=== PATIENT | male | born 1945 | race Caucasian/White ===

== ENCOUNTER 2025-07-15 00:48 | Inpatient (IN) | payer MEDICARE ==
[~2025-07-15] VITALS: Ht 175.3 cm; Wt 72.6 kg
[2025-07-15 01:14] LABS: PLATELET COUNT (AUTO) 323 K/uL (150-450); RED BLOOD CELL COUNT(AUTO) 4.41 MIL/uL (4.5-6.0); RED CELL DISTRIBUTION WIDTH 17.6 % (11.5-15.0); WHITE BLOOD COUNT (AUTO) 10.4 K/uL (4.3-11.0)
[2025-07-15] MEDS ORDERED: ZIPRASIDONE MESYLATE 20 MG/VIAL VIAL IM ONE (01:15)
[2025-07-15] MEDS: ZIPRASIDONE MESYLATE 20 MG/VIAL VIAL IM ONE (01:19)
[2025-07-15 01:33] LABS: ASPARTATE AMINOTRANSFERASE 21 U/L (15-37); CALCIUM, SERUM 9.1 mg/dL (8.5-10.1); CREATININE 2.1 mg/dL (0.6-1.3); SODIUM SERUM 136 mmol/L (136-145); TOTAL PROTEIN, SERUM 6.1 g/dL (6.4-8.2); UREA NITROGEN, BLOOD 59 mg/dL (7-18)
[2025-07-15 01:35] LABS: LACTIC ACID 3.5 mmol/L (0.4-2.0)
[2025-07-15] MEDS: POTASSIUM CL. PREMIX PERIPHER. 50 ML IV SCH ×2 (02:06→19:51)
[2025-07-15] MEDS: POTASSIUM CHLORIDE 20 MEQ TAB.PRT.SR PO ONE (02:16)
[2025-07-15 02:17] LABS: ABG BASE EXCESS 3.9 mmol/L (-2.0-3.0); ABG OXYGEN SATURATION 98.3 % (94.0-98.0); ABG PCO2 38.8 mmHg (35.0-48.0); ABG PH 7.472 (7.350-7.450); ABG PO2 129.4 mmHg (83.0-108.0); ABG TOTAL HEMOGLOBIN 12.4 G/dL (13.5-17.5); FLOW, BLOOD GAS 6.00 L/min (0.00-30.00); FRACTIONATED INSPIRED OXYGEN 44.0 %; SITE, ABG RIGHT RADIAL
[2025-07-15] MEDS ORDERED: ACETAMINOPHEN 325 MG TABLET PO PRN (03:00)
[2025-07-15] MEDS ORDERED: ONDANSETRON HCL/PF 4 MG/2 ML VIAL IVP PRN (03:00)
[2025-07-15] MEDS ORDERED: Z GUARD REMEDY 4 OZ OINT TP PRN (03:00)
[2025-07-15 03:19] LABS: APPEARANCE,URINE CLEAR (CLEAR); BLOOD, URINE NEGATIVE Ery/uL (NEGATIVE); LEUKOCYTE ESTERASE ,URINE NEGATIVE (NEGATIVE); NITRITE, URINE NEGATIVE (NEGATIVE); UGLUCOSE NEGATIVE (NEGATIVE)
[2025-07-15] MEDS: CEFTRIAXONE 1 G in IV D5W 50 ML IV SCH (03:30)
[2025-07-15 04:00] VITALS: BP 98/52; TEMP 97.3; O2SAT 99
[2025-07-15 04:34] LABS: LACTIC ACID REFLEX 2.9 mmol/L (0.4-1.9)
[2025-07-15 05:29] VITALS: BP 103/59; TEMP 97.4; O2SAT 100
[2025-07-15] MEDS: PANTOPRAZOLE 40 MG TABLET.DR PO SCH (07:30)
[2025-07-15 08:00] VITALS: BP 103/72; TEMP 97.1; O2SAT 100
[2025-07-15] MEDS ORDERED: SENN-261 PO (09:47)
[2025-07-15] MEDS ORDERED: LACT10SO29 PO (09:47)
[2025-07-15] MEDS ORDERED: POLY17PO4 PO (09:47)
[2025-07-15] MEDS ORDERED: BUME2TAB7 PO (09:47)
[2025-07-15] MEDS ORDERED: FINA5TAB11 PO (09:47)
[2025-07-15] MEDS ORDERED: FOLI1TAB34 PO (09:47)
[2025-07-15] MEDS ORDERED: TRAZ-182 PO (09:47)
[2025-07-15] MEDS ORDERED: AMIO100T PO (09:47)
[2025-07-15] MEDS ORDERED: BUPR-54 PO (09:47)
[2025-07-15] MEDS ORDERED: METO5TAB7 PO (09:47)
[2025-07-15] MEDS ORDERED: MIDO10TA PO (09:47)
[2025-07-15] MEDS ORDERED: RIVA15TA PO (09:47)
[2025-07-15] MEDS ORDERED: AMIO200T5 PO (09:47)
[2025-07-15] MEDS ORDERED: PANT40TA49 PO (09:47)
[2025-07-15 12:00] VITALS: BP 92/54; TEMP 98.6; O2SAT 100
[2025-07-15] MEDS: MIDODRINE HCL (5MG) 5 MG TABLET PO SCH (12:39)
[2025-07-15 12:40] LABS: PLATELET COUNT (AUTO) 303 K/uL (150-450); RED BLOOD CELL COUNT(AUTO) 4.21 MIL/uL (4.5-6.0); RED CELL DISTRIBUTION WIDTH 18.0 % (11.5-15.0); WHITE BLOOD COUNT (AUTO) 11.2 K/uL (4.3-11.0)
[2025-07-15 13:00] LABS: SODIUM SERUM 132.0 mmol/L (136-145)
[2025-07-15 13:07] LABS: CALCIUM, SERUM 8.7 mg/dL (8.5-10.1); CREATININE 1.8 mg/dL (0.6-1.3); UREA NITROGEN, BLOOD 53.0 mg/dL (7-18)
[2025-07-15] MEDS: POTASSIUM CHLORIDE 20 MEQ POWDER PACKET PO ONE ×3 (13:41→19:49)
[2025-07-15 16:00] VITALS: BP 99/70; TEMP 96.6; O2SAT 97
[2025-07-15 16:31] LABS: ASPARTATE AMINOTRANSFERASE 18.0 U/L (15-37); CALCIUM, SERUM 8.8 mg/dL (8.5-10.1); CREATININE 1.7 mg/dL (0.6-1.3); PHOSPHORUS 3.6 mg/dL (2.5-4.9); TOTAL PROTEIN, SERUM 5.6 g/dL (6.4-8.2); UREA NITROGEN, BLOOD 49.0 mg/dL (7-18)
[2025-07-15] MEDS: LACTULOSE 10 G/15 ML UDC (PYXIS) PO SCH (16:31)
[2025-07-15] MEDS: BUMETANIDE (1 MG) 1 MG TABLET PO SCH (16:32)
[2025-07-15 16:48] LABS: SODIUM SERUM 138.0 mmol/L (136-145)
[2025-07-15] MEDS: AMIODARONE HCL 200 MG TABLET PO SCH (17:24)
[2025-07-15] MEDS: RIVAROXABAN 15 MG TABLET PO SCH (17:25)
[2025-07-15 20:00] VITALS: BP 97/64; TEMP 97.5; O2SAT 95
[2025-07-15] MEDS ORDERED: POTASSIUM CHLORIDE 20 MEQ POWDER PACKET PO ONE (20:00)
[2025-07-15 21:26] LABS: HIV-1/2 ANTIBODY NON REACTIVE (NONREACTIVE)
[2025-07-16] VITALS: BP 95/66; TEMP 97.3; O2SAT 100
[2025-07-16 00:25] LABS: CALCIUM, SERUM 8.9 mg/dL (8.5-10.1); CREATININE 1.6 mg/dL (0.6-1.3); SODIUM SERUM 141.0 mmol/L (136-145); UREA NITROGEN, BLOOD 45.0 mg/dL (7-18)
[2025-07-16 04:00] VITALS: BP 94/66; TEMP 97.3; O2SAT 100
[2025-07-16 06:07] LABS: PLATELET COUNT (AUTO) 330 K/uL (150-450); RED BLOOD CELL COUNT(AUTO) 4.28 MIL/uL (4.5-6.0); RED CELL DISTRIBUTION WIDTH 18.1 % (11.5-15.0); WHITE BLOOD COUNT (AUTO) 9.2 K/uL (4.3-11.0)
[2025-07-16 06:26] LABS: ASPARTATE AMINOTRANSFERASE 22.0 U/L (15-37); CALCIUM, SERUM 8.8 mg/dL (8.5-10.1); CREATINE KINASE, TOTAL 13 U/L (39-308); CREATININE 1.7 mg/dL (0.6-1.3); PHOSPHORUS 3.2 mg/dL (2.5-4.9); SODIUM SERUM 139.0 mmol/L (136-145); TOTAL PROTEIN, SERUM 5.9 g/dL (6.4-8.2); UREA NITROGEN, BLOOD 44.0 mg/dL (7-18)
[2025-07-16 06:27] LABS: LDL 43.0 mg/dL (0-99)
[2025-07-16 08:00] VITALS: BP 93/69; TEMP 97.1; O2SAT 95
[2025-07-16] MEDS: AMIODARONE HCL 200 MG TABLET PO SCH (08:39)
[2025-07-16] MEDS: VIT B CMPLX 3/FA/VIT C/BIOTIN 1 TAB TABLET PO SCH (08:39)
[2025-07-16] MEDS: POTASSIUM CHLORIDE 20 MEQ POWDER PACKET PO ONE (08:39)
[2025-07-16] MEDS: PANTOPRAZOLE 40 MG TABLET.DR PO SCH (08:46)
[2025-07-16] MEDS: FINASTERIDE (5 MG) 5 MG TABLET PO SCH (08:46)
[2025-07-16] MEDS: BUPROPION XL 150 MG TAB.ER.24 PO SCH (08:46)
[2025-07-16] MEDS ORDERED: METOLAZONE 2.5 MG TABLET PO SCH (09:00)
[2025-07-16] MEDS: POTASSIUM CHLORIDE 20 MEQ TAB.PRT.SR PO SCH (11:26)
[2025-07-16 12:00] VITALS: BP 91/69; TEMP 97.5; O2SAT 96
[2025-07-16 15:43] LABS: CALCIUM, SERUM 8.8 mg/dL (8.5-10.1); CREATININE 1.5 mg/dL (0.6-1.3); SODIUM SERUM 136.0 mmol/L (136-145); UREA NITROGEN, BLOOD 41.0 mg/dL (7-18)
[2025-07-16 16:00] VITALS: BP 89/62; TEMP 97.1; O2SAT 94
[2025-07-16] MEDS: THERAHONEY GEL 1.5 OZ TUBE TP SCH (16:06)
[2025-07-16 16:48] LABS: CREATININE, URINE 66.7 MG/DL (30.0-125.0); URINE SODIUM, RANDOM 8.0 mmol/l (40-220); URINE TOTAL PROTEIN 42.3 mg/dL (0-11.9)
[2025-07-16 18:00] LABS: APPEARANCE,URINE CLEAR (CLEAR); BLOOD, URINE NEGATIVE Ery/uL (NEGATIVE); LEUKOCYTE ESTERASE ,URINE NEGATIVE (NEGATIVE); NITRITE, URINE NEGATIVE (NEGATIVE); UGLUCOSE NEGATIVE (NEGATIVE)
[2025-07-16 19:39] LABS: EOSINOPHIL,URINE None Seen
[2025-07-16 20:00] VITALS: BP 93/70; TEMP 97.3; O2SAT 97
[2025-07-17] VITALS: BP 93/72; TEMP 97.5; O2SAT 96
[2025-07-17 04:00] VITALS: BP 93/65; TEMP 97.5; O2SAT 95
[2025-07-17 04:07] LABS: PTH, INTACT 54 pg/mL (15-65)
[2025-07-17 08:00] VITALS: BP 95/74; TEMP 97.7; O2SAT 94
[2025-07-17 12:00] VITALS: BP 89/74; TEMP 97.7; O2SAT 94
[2025-07-17 12:19] LABS: PLATELET COUNT (AUTO) 353 K/uL (150-450); RED BLOOD CELL COUNT(AUTO) 4.61 MIL/uL (4.5-6.0); RED CELL DISTRIBUTION WIDTH 18.0 % (11.5-15.0); WHITE BLOOD COUNT (AUTO) 10.9 K/uL (4.3-11.0)
[2025-07-17 12:51] LABS: CREATINE KINASE, TOTAL 20.0 U/L (39-308)
[2025-07-17 13:00] LABS: ASPARTATE AMINOTRANSFERASE 38.0 U/L (15-37); CALCIUM, SERUM 9.2 mg/dL (8.5-10.1); CREATININE 1.6 mg/dL (0.6-1.3); PHOSPHORUS 3.1 mg/dL (2.5-4.9); SODIUM SERUM 132.0 mmol/L (136-145); TOTAL PROTEIN, SERUM 6.7 g/dL (6.4-8.2); UREA NITROGEN, BLOOD 45.0 mg/dL (7-18)
[2025-07-17] MEDS: ALBUMIN 25% 12.5 GM in PREMIX 1 EA IV ONE (13:55)
[2025-07-17] MEDS: GLUCERNA SHAKE 237 ML CAN PO SCH (14:11)
[2025-07-17 16:00] VITALS: BP 85/69; TEMP 97.2; O2SAT 95
[2025-07-17 17:34] LABS: WBC, BODY FLUID 511 /cu. mm. (0-200)
[2025-07-17 17:35] LABS: PROTEIN, BODY FLUID 3.3 G/DL
[2025-07-17 17:47] LABS: TOTAL VOLUME,BODY FLUID 1000 mL
[2025-07-17 17:49] LABS: APPEARANCE,SPUN,BODY FLUID CLEAR (CLEAR)
[2025-07-17 18:27] LABS: MACROPHAGES, BODY FLUID 10
[2025-07-17 20:00] VITALS: BP 102/70; TEMP 98.2; O2SAT 97
[2025-07-18] VITALS: BP 95/73; TEMP 98.2; O2SAT 98
[2025-07-18] MEDS: CEFTRIAXONE 2 G in IV D5W 50 ML IV SCH (03:56)
[2025-07-18 04:00] VITALS: BP 91/65; TEMP 98.4; O2SAT 96
[2025-07-18 04:03] LABS: CALCIUM, SERUM 8.7 mg/dL (8.5-10.1); CREATININE 1.6 mg/dL (0.6-1.3); SODIUM SERUM 129.0 mmol/L (136-145); UREA NITROGEN, BLOOD 48.0 mg/dL (7-18)
[2025-07-18 08:00] VITALS: BP 92/68; TEMP 97.5; O2SAT 97
[2025-07-18] MEDS: ALBUMIN 25% 25 GM in PREMIX 1 EA IV SCH (08:53)
[2025-07-18] MEDS: SODIUM ZIRCONIUM CYCLOSILICATE 10 GM POWD.PACK PO SCH (08:53)
[2025-07-18 08:56] LABS: PLATELET COUNT (AUTO) 306 K/uL (150-450); RED BLOOD CELL COUNT(AUTO) 4.25 MIL/uL (4.5-6.0); RED CELL DISTRIBUTION WIDTH 18.2 % (11.5-15.0); WHITE BLOOD COUNT (AUTO) 9.1 K/uL (4.3-11.0)
[2025-07-18 09:09] LABS: CALCIUM, SERUM 9.0 mg/dL (8.5-10.1); CREATININE 1.7 mg/dL (0.6-1.3); SODIUM SERUM 129.0 mmol/L (136-145); UREA NITROGEN, BLOOD 47.0 mg/dL (7-18)
[2025-07-18 09:10] LABS: CREATININE, URINE 51.8 MG/DL (30.0-125.0); URINE SODIUM, RANDOM < 5 mmol/l (40-220); URINE TOTAL PROTEIN 49.1 mg/dL (0-11.9)
[2025-07-18 09:11] LABS: PTH, INTACT 52 pg/mL (15-65)
[2025-07-18 12:00] VITALS: BP 87/61; TEMP 97.3; O2SAT 98
[2025-07-18] MEDS: FUROSEMIDE 20 MG/2 ML VIAL IV STA (12:06)
[2025-07-18 15:36] LABS: CALCIUM, SERUM 8.2 mg/dL (8.5-10.1); CREATININE 1.5 mg/dL (0.6-1.3); SODIUM SERUM 127.0 mmol/L (136-145); UREA NITROGEN, BLOOD 47.0 mg/dL (7-18)
[2025-07-18 16:00] VITALS: BP 83/57; TEMP 97.7; O2SAT 99
[2025-07-18 20:00] VITALS: BP 97/74; TEMP 97.9; O2SAT 98
[2025-07-18] MEDS: TRAZODONE 50 MG TABLET PO SCH (23:21)
[2025-07-19] VITALS: BP 95/72; TEMP 98; O2SAT 97
[2025-07-19 04:00] VITALS: BP 93/70; TEMP 98.1; O2SAT 98
[2025-07-19 06:23] LABS: PLATELET COUNT (AUTO) 270 K/uL (150-450); RED BLOOD CELL COUNT(AUTO) 3.95 MIL/uL (4.5-6.0); RED CELL DISTRIBUTION WIDTH 17.7 % (11.5-15.0); WHITE BLOOD COUNT (AUTO) 7.2 K/uL (4.3-11.0)
[2025-07-19 06:47] LABS: ASPARTATE AMINOTRANSFERASE 18.0 U/L (15-37); CALCIUM, SERUM 8.7 mg/dL (8.5-10.1); CREATININE 1.8 mg/dL (0.6-1.3); PHOSPHORUS 3.7 mg/dL (2.5-4.9); SODIUM SERUM 131.0 mmol/L (136-145); TOTAL PROTEIN, SERUM 5.9 g/dL (6.4-8.2); UREA NITROGEN, BLOOD 47.0 mg/dL (7-18)
[2025-07-19 08:00] VITALS: BP 93/65; TEMP 97.3; O2SAT 96
[2025-07-19] MEDS: POLYETHYLENE GLYCOL 3350 17 GM POWD.PACK PO PRN (09:15)
[2025-07-19] MEDS ORDERED: DOSING PER PHARMACY-VANCOMYCIN IV XX PRN (09:30)
[2025-07-19 12:00] VITALS: BP 94/57; TEMP 97.5; O2SAT 96
[2025-07-19] MEDS: VANCOMYCIN 1 GM in IV D5W 250ml IV SCH (12:29)
[2025-07-19 16:00] VITALS: BP 94/57; TEMP 97.5; O2SAT 96
[2025-07-19 20:00] VITALS: BP 91/60; TEMP 97.7; O2SAT 99
[2025-07-20] VITALS: BP 93/64; TEMP 98.1; O2SAT 96
[2025-07-20 04:00] VITALS: BP 99/64; TEMP 98.2; O2SAT 96
[2025-07-20 06:43] LABS: CALCIUM, SERUM 8.5 mg/dL (8.5-10.1); CREATININE 1.4 mg/dL (0.6-1.3); SODIUM SERUM 131.0 mmol/L (136-145); UREA NITROGEN, BLOOD 40.0 mg/dL (7-18)
[2025-07-20 06:47] LABS: PLATELET COUNT (AUTO) 283 K/uL (150-450); RED BLOOD CELL COUNT(AUTO) 3.82 MIL/uL (4.5-6.0); RED CELL DISTRIBUTION WIDTH 18.2 % (11.5-15.0); WHITE BLOOD COUNT (AUTO) 6.8 K/uL (4.3-11.0)
[2025-07-20 08:00] VITALS: BP 93/64; TEMP 97.7; O2SAT 99
[2025-07-20] MEDS: POTASSIUM CHLORIDE 20 MEQ TAB.PRT.SR PO SCH (09:44)
[2025-07-20] MEDS: ALPRAZOLAM 0.25 MG TABLET PO PRN (09:47)
[2025-07-20 12:00] VITALS: BP 96/58; TEMP 97.7; O2SAT 99
[2025-07-20 16:00] VITALS: BP 90/67; TEMP 97.5; O2SAT 99
[2025-07-20 20:00] VITALS: BP 90/64; TEMP 97.5; O2SAT 97
[2025-07-21] VITALS: BP 90/64; TEMP 97.5; O2SAT 97
[2025-07-21] MEDS: CEFTRIAXONE 2 G in IV NS 0.9% 100 ML IV SCH (03:15)
[2025-07-21 04:00] VITALS: BP 85/64; TEMP 97.3; O2SAT 97
[2025-07-21] MEDS ORDERED: MIDODRINE HCL (5MG) 5 MG TABLET PO ONE (05:00)
[2025-07-21] MEDS ORDERED: MIDODRINE HCL (5MG) 5 MG TABLET PO SCH (05:00)
[2025-07-21] MEDS: MIDODRINE HCL (5MG) 5 MG TABLET PO ONE (05:27)
[2025-07-21 08:00] VITALS: BP 87/59; TEMP 97.4; O2SAT 97
[2025-07-21] MEDS: CEFTRIAXONE 1GM BAG (ER ONLY) 50 ML IV ONE (08:03)
[2025-07-21 08:05] LABS: ASPARTATE AMINOTRANSFERASE 16.0 U/L (15-37); CALCIUM, SERUM 8.4 mg/dL (8.5-10.1); CREATININE 1.2 mg/dL (0.6-1.3); PHOSPHORUS 2.3 mg/dL (2.5-4.9); PLATELET COUNT (AUTO) 305 K/uL (150-450); RED BLOOD CELL COUNT(AUTO) 3.89 MIL/uL (4.5-6.0); RED CELL DISTRIBUTION WIDTH 17.8 % (11.5-15.0); TOTAL PROTEIN, SERUM 5.5 g/dL (6.4-8.2); UREA NITROGEN, BLOOD 36.0 mg/dL (7-18); WHITE BLOOD COUNT (AUTO) 6.8 K/uL (4.3-11.0)
[2025-07-21 08:14] LABS: SODIUM SERUM 131.0 mmol/L (136-145)
[2025-07-21] MEDS ORDERED: NEPRO VAN 237 ML CAN PO PRN (10:00)
[2025-07-21] MEDS: SENNOSIDES 8.6 MG TABLET PO PRN (10:22)
[2025-07-21] MEDS: POTASSIUM CHLORIDE 20 MEQ TAB.PRT.SR PO SCH (10:22)
[2025-07-21 12:00] VITALS: BP 96/68; TEMP 97.4; O2SAT 98
[2025-07-21] MEDS: VANCOMYCIN HCL 1.25 GM in IV D5W 250 ML IV SCH (13:41)
[2025-07-21 16:00] VITALS: BP 96/68; TEMP 97.4; O2SAT 98
[2025-07-21] MEDS ORDERED: DOSING PER PHARMACY-CEFEPIME IVPB XX PRN (16:30)
[2025-07-21] MEDS: K PHOS NEUTRAL 250 MG TABLET PO ONE (17:21)
[2025-07-21] MEDS: CEFEPIME 2 GM in IV D5W 100 ML IV SCH (18:17)
[2025-07-21 20:17] VITALS: BP 94/60; TEMP 97.4; O2SAT 96
[2025-07-22 04:50] VITALS: BP 95/66; TEMP 97.4; O2SAT 96
[2025-07-22 06:27] LABS: PLATELET COUNT (AUTO) 319 K/uL (150-450); RED BLOOD CELL COUNT(AUTO) 3.96 MIL/uL (4.5-6.0); RED CELL DISTRIBUTION WIDTH 18.5 % (11.5-15.0); WHITE BLOOD COUNT (AUTO) 6.9 K/uL (4.3-11.0)
[2025-07-22 06:43] LABS: CALCIUM, SERUM 8.7 mg/dL (8.5-10.1); CREATININE 1.1 mg/dL (0.6-1.3); SODIUM SERUM 135.0 mmol/L (136-145); UREA NITROGEN, BLOOD 35.0 mg/dL (7-18)
[2025-07-22 08:00] VITALS: BP 91/63; TEMP 97.7; O2SAT 97
[2025-07-22 12:00] VITALS: BP 91/63; TEMP 97.7; O2SAT 97
[2025-07-22] MEDS ORDERED: ALPR0.255 PO (13:03)
[2025-07-22] MEDS: SODIUM ZIRCONIUM CYCLOSILICATE 10 GM POWD.PACK PO ONE (13:45)
[2025-07-22] MEDS: MINERAL OIL 133 ML (PYXIS) 1 EA ENEMA RC PRN (13:45)
[2025-07-22 16:00] VITALS: BP 91/63; TEMP 97.9; O2SAT 97
[2025-07-22 17:39] VITALS: BP 91/63
== END 2025-07-22 20:07 | disposition home or self-care (01) | DRG 640 ==
LOC: ER 00:54 → TELE1 03:36 → MEDSG1 07-20 09:39
PROVIDERS: ADMIT Nurse Practitioner Acute Care; ATTEND Nurse Practitioner Family
DX: E86.0 Dehydration (principal); G92.8 Other toxic encephalopathy; L89.123 Pressure ulcer of left upper back, stage 3; L89.113 Pressure ulcer of right upper back, stage 3; I50.43 Acute on chronic combined systolic (congestive) and diastolic (congestive) heart failure; N17.0 Acute kidney failure with tubular necrosis; I13.0 Hypertensive heart and chronic kidney disease with heart failure and stage 1 through stage 4 chronic kidney disease, or unspecified chronic kidney disease; E44.0 Moderate protein-calorie malnutrition; R18.8 Other ascites; I48.92 Unspecified atrial flutter; I42.8 Other cardiomyopathies; E87.6 Hypokalemia; N40.0 Benign prostatic hyperplasia without lower urinary tract symptoms; N18.30 Chronic kidney disease, stage 3 unspecified; Z20.822 Contact with and (suspected) exposure to COVID-19; F03.90 Unspecified dementia, unspecified severity, without behavioral disturbance, psychotic disturbance, mood disturbance, and anxiety; D64.9 Anemia, unspecified; E87.20 Acidosis, unspecified; E88.09 Other disorders of plasma-protein metabolism, not elsewhere classified; S80.12XA Contusion of left lower leg, initial encounter; S80.11XA Contusion of right lower leg, initial encounter; S40.022A Contusion of left upper arm, initial encounter; S40.021A Contusion of right upper arm, initial encounter; X58.XXXA Exposure to other specified factors, initial encounter; Y92.9 Unspecified place or not applicable; Z79.01 Long term (current) use of anticoagulants; Z79.899 Other long term (current) drug therapy; E87.1 Hypo-osmolality and hyponatremia; E87.5 Hyperkalemia; Z95.810 Presence of automatic (implantable) cardiac defibrillator; S61.412A Laceration without foreign body of left hand, initial encounter; S80.212A Abrasion, left knee, initial encounter; T50.2X5A Adverse effect of carbonic-anhydrase inhibitors, benzothiadiazides and other diuretics, initial encounter; K80.20 Calculus of gallbladder without cholecystitis without obstruction; K74.60 Unspecified cirrhosis of liver; I48.91 Unspecified atrial fibrillation; Z90.79 Acquired absence of other genital organ(s); I95.89 Other hypotension; I27.20 Pulmonary hypertension, unspecified; R53.1 Weakness; L89.156 Pressure-induced deep tissue damage of sacral region; E27.8 Other specified disorders of adrenal gland
CPT/HCPCS: 36415; 36600; 70450-TC; 71045-TC; 71250-TC; 76770-TC; 80048-TC; 80053-TC; 80061-TC; 80202-TC; 82248-TC; 82550-TC; 82570-TC; 82803-TC; 83605-TC; 83735-TC; 83880; 83970; 84100-TC; 84132-TC; 84155; 84165; 84300-TC; 84439-TC; 84443-TC; 84484-TC; 85025-TC; 86140-TC; 86803; 87040-TC; 87070-TC; 87086-TC; 87186-TC; 87806; 88108-TC; 88305-TC; 88312-TC; 88341; 88342; 89051-TC; 93307-TC; 97110-TC; 97116-TC; 97530-TC; 97535-TC; A4216; A4223; A6253; A6254; A6403; G0378; J0692; J0696; J1938; J3373; J3480; J3486; J7030; J7040; J7050; J7060; P9047; Q0163